=== PATIENT | male | born 1975 | race African-American/Black ===

== ENCOUNTER 2016-12-09 15:20 | Emergency (ER) | payer SELFPAY | END 2016-12-09 16:15 | disposition home or self-care (01) | LOC: CFTX 15:20 → CED 15:20 → CFTX 16:14 | DX: S61.411A Laceration without foreign body of right hand, initial encounter (principal); W22.8XXA Striking against or struck by other objects, initial encounter | CPT/HCPCS: 12001; 99283 ==